=== PATIENT | male | born 1975 | race Caucasian/White ===

== ENCOUNTER 2022-08-26 13:43 | Outpatient (CLI) | payer OTHER, SELFPAY ==
[2022-08-26 19:43] LABS: Alanine Aminotransferase 86 U/L (6-50); Albumin Level 4.8 g/dL (3.5-5.1); Alkaline Phosphatase 56 U/L (38-126); Anion Gap 11 mmol/L (8-16); Aspartate Amino Transferase 72 U/L (17-59); Bilirubin,Total 0.8 mg/dL (0.2-1.3); Blood Urea Nitrogen 23 mg/dL (9-20); Calcium 9.1 mg/dL (8.4-10.2); Carbon Dioxide 23 mmol/L (22-30); Chloride 105 mmol/L (98-107); Estimated Glomerular Filt Rate > 60; Glucose 86 mg/dL (65-110); Potassium 4.2 mmol/L (3.4-5.0); Sodium 139 mmol/L (137-145)
[2022-08-26 19:48] LABS: Basophils Percent Auto 0.5 % (0.2-1.2); Eosinophils Absolute Auto 0.1 K/mm3 (0-0.3); Eosinophils Percent Auto 1.5 % (0-4.4); Hematocrit 44.4 % (42.0-52.0); Hemoglobin 14.8 g/dL (14.0-18.0); Immature Granulocyte Absolute 0.03 K/mm3 (0.00-0.031); Immature Granulocyte Percent A 0.4 % (0-0.5); Immature Platelet Fraction Pct 5.1 % (0.9-11.2); Lymphocytes Absolute Auto 3.22 K/mm3 (0.9-3.2); Lymphocytes Percent Auto 39.1 % (18.3-44.2); Mean Corpuscular HGB Conc 33.3 g/dl (32-36); Mean Corpuscular Hemoglobin 31.5 pg (26-34); Mean Corpuscular Volume 94.5 fl (80-100); Mean Platelet Volume 10.9 fl (7.4-10.4); Monocytes Absolute Auto 0.7 K/mm3 (0.1-0.6); Neutrophils Absolute Auto 4.1 K/mm3 (1.3-6.7); Neutrophils Percent Auto 49.5 % (45.5-73.1); Platelet Count Result 287 k/mm3 (150-375); Red Cell Distribution Width 12.9 % (11.5-14.5); White Blood Count 8.2 K/mm3 (4.5-10.0)
[2022-08-26 19:50] LABS: Prostate Specific Antigen 1.5 ng/mL (< OR = 4.0)
[2022-08-26 20:56] LABS: Platelet Estimate Adequate (Adequate)
[2022-08-26 20:57] LABS: HIV 1/2 Ab P24 Ag Result Negative (Negative); Schistocytes None Seen (NORMAL)
[2022-08-26 21:27] LABS: Hepatitis C Virus Antibody Negative (Negative)
[2022-08-27 11:21] LABS: Rapid Plasma Reagin Non-Reactive (NonReactive)
[2022-09-01 07:42] LABS: Herpes Simplex Type 1 DNA PCR Not Detected; Herpes Simplex Type 2 DNA PCR Not Detected
[2022-09-03 10:32] LABS: LH 8.1
[2022-09-07 20:02] LABS: Estradiol, Ultrasensitive 22 pg/mL (< OR = 29)
[2022-09-10 08:14] LABS: Testosterone Free 59.6; Testosterone Total 304
== END 2022-08-26 13:44 | disposition home or self-care (01) ==
LOC: ANHGOSHLAB 13:45
PROVIDERS: PCP Internal Medicine; Visit Provider Nurse Practitioner
DX: E29.1 Testicular hypofunction (principal); Z11.3 Encounter for screening for infections with a predominantly sexual mode of transmission
CPT/HCPCS: 36415; 80053; 82670; 83001; 83002; 84153; 84402; 84403; 85025; 85055; 86592; 86703; 86803; 87491; 87529; 87591; G0432

== ENCOUNTER 2023-02-23 11:48 | Emergency (ER) | payer OTHER, SELFPAY ==
--- NOTE | 2023-02-23 11:59 | ED.CHESTPAIN ---
HPI - Chest Pain General Chief Complaint: Chest Pain Stated Complaint: CHEST PAIN Time Seen by Provider: 02/23/23 11:59 Source: patient and RN notes reviewed History of Present Illness HPI narrative: Patient is a 47-year-old male who presents to urgent care with complaints of chest discomfort when lying down. Patient denies any shortness of breath at rest or on exertion. Patient states that it started last night. Patient called his primary care doctor early this morning and they advised him to get evaluated at either urgent care or ER. Patient denies taking anything for his pain. Denies any heart history. No other acute complaints. No acute distress noted. Patient aware of the plan of care. Some parts of this dictation were generated by voice recognition software and may contain typographical and/or grammatical inaccuracies. Related Data Allergies Allergy/AdvReac Type Severity Reaction Status Date / Time No Known Allergies Allergy Verified 02/23/23 11:56 Review of Systems Review of Systems: CONSTITUTIONAL: Denies fever, chills, or sweats. EYES: Denies visual changes, redness, or discharge. ENT: Denies rhinorrhea, congestion, sore throat, or otalgia. CARDIOVASCULAR: Reports of chest pain when lying down RESPIRATORY: Denies cough or dyspnea. GASTROINTESTINAL: Denies abdominal pain, nausea, vomiting, or diarrhea. GENITOURINARY: Denies dysuria or hematuria. SKIN: Denies rash or itching. MUSCULOSKELETAL: Denies back pain, joint pain, or myalgia. NEUROLOGIC: Denies headache, numbness, or weakness. All other systems reviewed are negative, except as documented in HPI. [facility] Past Medical History Medical History (Updated 02/23/23 @ 12:18 by YUSEF Hurd) Elevated liver enzymes Long-term current use of testosterone cypionate Family History Family History Mother Cancer Diabetes mellitus Sibling Cancer Diabetes mellitus Social History Social History Smoking status: Former smoker Tobacco type: cigarettes Alcohol intake: current Alcohol use details: SELDOM Substance use type: does not use Lack of Transportation: No Lack of Food: Never True Current Housing: I Have Housing Concerned About Future Housing: No Difficulty Paying Gas/Electric Bills: No Difficulty Paying for Meds: No Currently Unemployed: No Education: Associate Degree Difficulty w/ Childcare or Family Care: No Living arrangements: alone Spiritual care concerns: No Comments At the time of my signature, I reviewed and agree with the nursing past medical, surgical, social, and family history. There is no relevant family history pertinent to the patient complaint. Exam Narrative: GENERAL: This is a well-nourished, well-developed patient, in no apparent distress. HEAD: normocephalic, atraumatic. EYES: PERRL. Sclera clear/white. Vision is grossly intact. EARS: External ears normal NOSE: External nose normal with no obvious nasal discharge, nares without redness, no rhinorrhea. THROAT: Mucous membranes moist NECK: Neck supple CARDIOVASCULAR: Regular rate and rhythm without murmurs, gallops, or rubs. RESPIRATORY: Clear to auscultation. Breath sounds equal bilaterally. No wheezes, rales, or rhonchi. SKIN: warm, intact with no suspicious lesions or rash, good texture and turgor. NEURO: awake, alert, and oriented to person, place and time. There were no obvious focal neurologic abnormalities. EXTREMITIES: No clubbing, cyanosis, or edema. Course Course Level of Care: Express Care Visit Vital Signs Vital signs: Vital Signs Temperature 98.1 F 02/23/23 12:06 Pulse Rate 69 02/23/23 12:06 Respiratory Rate 16 02/23/23 12:06 Blood Pressure 159/97 H 02/23/23 12:06 Pulse Oximetry 98 02/23/23 12:06 Temperature 98.1 F 02/23/23 12:06 Pulse Rate 69 02/23/23 12:06 Respirat
[2023-02-23 12:06] VITALS: BP 159/97; PULSE 69; RESP 16; TEMP 36.7; O2SAT 98
--- NOTE | 2023-02-23 12:09 | ECG_ITS ---
Measurements Intervals [place] Rate: 65 P: 55 TN: 162 QRS: 35 QRSD: 108 T: 11 QT: 384 QTc: 401 Interpretive Statements SINUS RHYTHM EARLY PRECORDIAL R/S TRANSITION MINIMAL Q WAVES- INFERIOR LEADS BORDERLINE T WAVE ABNORMALITY- INFERIOR LEADS BORDERLINE ECG NO PREVIOUS ECG AVAILABLE FOR COMPARISON Electronically Signed On 02-23-2023 13:13:44 TIER OVER by Nj Vargas D.O.
== END 2023-02-23 12:17 | disposition left against medical advice (07) ==
PROVIDERS: Emergency Provider Nurse Practitioner Family; PCP Internal Medicine
DX: R07.9 Chest pain, unspecified (principal); Z87.891 Personal history of nicotine dependence
CPT/HCPCS: 93005; 99213; G0463

== ENCOUNTER 2024-06-15 01:06 | Day surgery (SDC) | payer BC, SELFPAY ==
[2024-06-04 11:47] VITALS: BMI 33.0
[2024-06-15 07:51] VITALS: BP 145/90; PULSE 83; RESP 16; TEMP 35.9; O2SAT 97; BMI 33.0
[2024-06-15] MEDS: LACTATED RINGERS 1,000 ML 150 ML IV CONT (08:01)
--- NOTE | 2024-06-15 08:14 | WPDANESEPPF ---
Anes - Initial Pre Proc Eval Procedure: Operation Date: 06/15/24 09:00 Proposed Procedures p Screening Colonoscopy - Omid Camarillo MD Date/Time: 06/15/24 08:14 Surgeon: Omid Camarillo MD Pre Op Diagnosis: Screening for malignant neoplasm of colon Patient Data Age: 48 Gender: M Height: 1.85 m Weight: 113.7 kg Last Vital Signs Temp 35.9 C L 06/15/24 07:51 Pulse 83 06/15/24 07:51 Resp 16 06/15/24 07:51 BP 145/90 H 06/15/24 07:51 Pulse Ox 97 06/15/24 07:51 O2 Del Method Room Air 06/15/24 07:51 Allergies Allergy/AdvReac Type Severity Reaction Status Date / Time No Known Allergies Allergy Verified 06/15/24 07:49 Home Medications ?Medication ?Instructions ?Recorded ?Confirmed ?Type CPAP Equipment #1 ea 09/14/23 01/06/24 Rx needle (disp) 18 G 18 gauge x 1 #12 ea 01/06/24 01/06/24 Rx 1/2 (BD Short Bevel [place]) needle (disp) 23 gauge 23 gauge x #100 ea 01/06/24 01/06/24 Rx 1 (BD Integra Needle) testosterone cypionate 200 mg/mL 140 mg (0.7 mL) IM WEEKLY #10 mL 03/26/24 06/15/24 Rx intramuscular oil Patient hx anesthesia problems: none Family hx anesthesia problems: none Results Review: All pre-operative results and documents have been reviewed as part of the pre-operative evaluation. [facility] Past Medical History Medical History Elevated liver enzymes Long-term current use of testosterone cypionate JUAN (obstructive sleep apnea) Family History Family History Mother Cancer Diabetes mellitus Sibling Cancer Diabetes mellitus Social History Social History Smoking status: Never smoker Tobacco type: cigarettes Alcohol intake: never Alcohol use details: SELDOM Substance use: never Substance use type: does not use Do You Feel Safe in your Home?: Yes Lack of Transportation: No Lack of Food: Never True Current Housing: I Have Housing Concerned About Future Housing: No Difficulty Paying Gas/Electric Bills: No Difficulty Paying for Meds: No Currently Unemployed: No Education: Associate Degree Difficulty w/ Childcare or Family Care: No Living arrangements: with family Spiritual care concerns: No Anes - Eval Final PreProcedure Day of Procedure 06/15/24 08:14 Patient weight: obese Heart: regular rate and rhythm Lungs: clear to auscultation Airway: Mallampati scale class III Neurological: alert and oriented Last oral intake: >/= 8 hours ASA classification: III Emergent: no Anesthetic plan: proceed Anesthesia type and monitoring: general GIVS and standard monitoring Results Review: All pre-operative results and documents have been reviewed as part of the pre-operative evaluation. Informed Consent: The patient's anesthetic plan and its attendant risks and benefits were discussed with the patient/family/POA. Questions were solicited and answers provided to the satisfaction of the patient/family/POA.
--- NOTE | 2024-06-15 08:35 | PM.HPGS ---
History of Present Illness History of Present Illness Consent: Risks, benefits, and alternatives have been discussed and questions answered. Patient agrees to proceed with procedure. Chief complaint: Screening for malignant neoplasm of colon Narrative: Benito Kyle is a 48 year old male here for first colonoscopy, mother had colon cancer Review of Systems Review of Systems: All systems reviewed & are unremarkable except as noted in HPI and below PMFSH Past Medical History Medical History (Updated 06/15/24 @ 08:36 by Omid Camarillo MD) Family history of colon cancer in mother JUAN (obstructive sleep apnea) Elevated liver enzymes Long-term current use of testosterone cypionate Family History Family History Mother Cancer Diabetes mellitus Sibling Cancer Diabetes mellitus Social History Social History Smoking status: Never smoker Tobacco type: cigarettes Alcohol intake: never Alcohol use details: SELDOM Substance use: never Substance use type: does not use Do You Feel Safe in your Home?: Yes Lack of Transportation: No Lack of Food: Never True Current Housing: I Have Housing Concerned About Future Housing: No Difficulty Paying Gas/Electric Bills: No Difficulty Paying for Meds: No Currently Unemployed: No Education: Associate Degree Difficulty w/ Childcare or Family Care: No Living arrangements: with family Spiritual care concerns: No Meds Home Medications and Allergies Home Medications ?Medication ?Instructions ?Recorded ?Confirmed ?Type CPAP Equipment #1 09/14/23 01/06/24 Rx needle (disp) 18 G 18 gauge x 1 #12 01/06/24 01/06/24 Rx 1/2 (BD Short Bevel [place]) needle (disp) 23 gauge 23 gauge x #100 01/06/24 01/06/24 Rx 1 (BD Integra Needle) testosterone cypionate 200 mg/mL 140 mg (0.7 mL) IM WEEKLY #10 mL 03/26/24 06/15/24 Rx intramuscular oil Allergies Allergy/AdvReac Type Severity Reaction Status Date / Time No Known Allergies Allergy Verified 06/15/24 07:49 Vital Signs Vital Signs - 24 hr 06/15/24 07:51 Temperature 96.7 F L Pulse Rate 83 Respiratory Rate 16 Blood Pressure 145/90 H Pulse Oximetry 97 Oxygen Delivery Room Air Exam Const: General: comfortable and no acute distress HENMT: Face/Nose/Sinus: Normal nares present Eyes: General: appearance normal, both eyes and all related structures Neck: Neck: no JVD Resp: Auscultation: clear to auscultation bilaterally Cardio: Rate: regular rate Rhythm: regular rhythm GI: Inspection: non-distended GI Palp: Yes Soft to palpation Skin: General skin exam: normal color Neuro: General: gait normal Speech: normal speech Extrem: General: normal to inspection Psych: Mental Status: mental status grossly normal Assessment and Plan Assessment and plan (1) Family history of colon cancer in mother: Code(s): Z80.0 - Family history of malignant neoplasm of digestive organs Status: Acute Assessment and Plan: colonoscopy
[2024-06-15 08:51] VITALS: BP 141/73; PULSE 82; RESP 14; O2SAT 96
[2024-06-15 09:01] VITALS: BP 111/69; PULSE 69; RESP 18; O2SAT 100
[2024-06-15 09:11] VITALS: BP 120/70; PULSE 66; RESP 14; O2SAT 100
== END 2024-06-15 09:20 | disposition home or self-care (01) ==
PROVIDERS: PCP Internal Medicine; Referring Provider Clinical Nurse Specialist; Visit Provider Internal Medicine Gastroenterology
PROC: 0DJD8ZZ Inspection of Lower Intestinal Tract, Via Natural or Artificial Opening Endoscopic (ICD-10-PCS; CPT 45378; principal; 2024-06-15 09:00)
DX: Z12.11 Encounter for screening for malignant neoplasm of colon (principal); Z80.0 Family history of malignant neoplasm of digestive organs; D12.0 Benign neoplasm of cecum; D12.2 Benign neoplasm of ascending colon; D12.5 Benign neoplasm of sigmoid colon; K64.8 Other hemorrhoids; G47.33 Obstructive sleep apnea (adult) (pediatric)
CPT/HCPCS: 45385; 88305; J2003; J2704; J7120